=== PATIENT | male | born 1945 | race Caucasian/White ===

== ENCOUNTER 2017-11-17 12:24 | Inpatient (IN) | payer MEDICARE, BC ==
[~2017-11-17] VITALS: Ht 165.1 cm; Wt 61.5 kg
[2017-11-17 12:25] VITALS: BP 147/64; PULSE 82; RESP 18; TEMP 98.1; O2SAT 98
[2017-11-17 13:21] LABS: AUTOMATED NEUTROPHIL # 6.8 TH/MM3 (1.8-7.7); BASOPHIL % 0.3 % (0.0-2.0); EOSINOPHIL # 0.1 TH/MM3 (0-0.4); EOSINOPHIL % 0.9 % (0.0-4.0); HEMATOCRIT 37.2 % (39.0-51.0); HEMOGLOBIN 12.3 GM/DL (13.0-17.0); LYMPH % 25.9 % (9.0-44.0); LYMPHOCYTE # 2.7 TH/MM3 (1.0-4.8); MEAN CELL VOLUME 80.9 FL (80.0-100.0); MEAN CORPUSCULAR HEMOGLOBIN 26.8 PG (27.0-34.0); MEAN CORPUSCULAR HGB CONC 33.1 % (32.0-36.0); MEAN PLATELET VOLUME 8.6 FL (7.0-11.0); MONO % 7.3 % (0.0-8.0); MONOCYTE # 0.8 TH/MM3 (0-0.9); NEUT % 65.6 % (16.0-70.0); PLATELET COUNT 196 TH/MM3 (150-450); RED BLOOD COUNT 4.59 MIL/MM3 (4.50-5.90); RED CELL DISTRIBUTION WIDTH 15.4 % (11.6-17.2); WHITE BLOOD COUNT 10.4 TH/MM3 (4.0-11.0)
[2017-11-17 13:22] LABS: ALBUMIN 3.6 GM/DL (3.4-5.0); ALT (GPT) 27 U/L (12-78); AST (GOT) 16 U/L (15-37); BICARBONATE 23.8 MEQ/L (21.0-32.0); BLOOD UREA NITROGEN 13 MG/DL (7-18); C-REACTIVE PROTEIN 1.14 MG/DL (0.00-0.30); CHLORIDE 108 MEQ/L (98-107); CREATININE 0.79 MG/DL (0.60-1.30); GLOMERULAR FILTRATION RATE 96 ML/MIN (>89); GLUCOSE,RANDOM 111 MG/DL (74-106); SODIUM (NA) 140 MEQ/L (136-145)
[2017-11-17 13:23] LABS: ALKALINE PHOSPHATASE 86 U/L (45-117); LACTIC ACID SEPSIS PROTOCOL 2.3 mmol/L (0.4-2.0); TOTAL BILIRUBIN ADULT 0.3 MG/DL (0.2-1.0); TOTAL PROTEIN 7.5 GM/DL (6.4-8.2)
[2017-11-17 13:28] LABS: PROTHROMBIN TIME - PATIENT 9.8 SEC (9.8-11.6)
--- NOTE | 2017-11-17 13:32 | RADRPT ---
EXAM DATE/TIME: 11/17/2017 13:06 [place] COMPARISON: No previous studies available for comparison. INDICATIONS : Infected 2nd digit, with drainage and swelling x 2 weeks. MEDICAL HISTORY : None. SURGICAL HISTORY : None. ENCOUNTER: Initial ACUITY: 2 weeks PAIN SCORE: 9/10 LOCATION: Left hand. FINDINGS: AP, lateral and oblique views of the left hand were obtained and demonstrate flexion deformity at the level of the second proximal interphalangeal joint. Generative change no joint space loss, sclerosis and hypertrophic change. There is fusion of the second distal and middle phalanges. There is overlyi ng soft tissue swelling with no destructive change or periosteal new bone formation. There are severa l small subtle appearing calcifications in the soft tissues. CONCLUSION: 1. Soft tissue swelling over the second digit with no destructive change. There are several minute ca lcifications in the soft tissues. 2. Significant degenerative change in the second proximal interphalangeal joint with apparent flexion deformity. 3. Status post fusion of the second distal and middle phalanges. Cheng Enrique MD on November 17, 2017 at 13:25 Board Certified Radiologist. This report was verified electronically.
[2017-11-17] MEDS ORDERED: METF500T4 PO (14:10)
[2017-11-17] MEDS ORDERED: ONDANSETRON HCL 4 MG/2 ML VIAL IV PUSH ONE (14:45)
[2017-11-17] MEDS ORDERED: MORPHINE SULFATE 2 MG/ML INJ IV PUSH ONE (14:45)
[2017-11-17] MEDS ORDERED: PIPERACIL-TAZO 3.375 GM PREMIX 50 ML IV ONE (14:45)
[2017-11-17 15:19] VITALS: BP 184/80; PULSE 71; RESP 18; O2SAT 100
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
[2017-11-17] MEDS ORDERED: SODIUM CHLOR 0.9% 1000 ML INJ 1,000 ML IV ONE (15:30)
[2017-11-17] MEDS ORDERED: PROS5TAB PO (15:41)
[2017-11-17] MEDS ORDERED: ZOCO20TA PO (15:41)
[2017-11-17] MEDS ORDERED: TAMS0.4C4 PO (15:41)
[2017-11-17] MEDS ORDERED: [UNRECOGNIZED DRUG - CODE] PO (15:41)
[2017-11-17] MEDS ORDERED: PANT40TA3 PO (15:41)
[2017-11-17] MEDS ORDERED: ONE-TAB4 PO (15:41)
[2017-11-17] MEDS ORDERED: ACET650T67 PO (15:41)
[2017-11-17] MEDS ORDERED: ARIC10TA9 PO (15:41)
[2017-11-17] MEDS ORDERED: OXYB5TAB8 PO (15:41)
[2017-11-17] MEDS ORDERED: ASPI81TA16 PO (15:41)
[2017-11-17] MEDS ORDERED: CALCTAB94 PO (15:41)
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
[2017-11-17] MEDS ORDERED: ONDANSETRON HCL 4 MG/2 ML VIAL IVP PRN (16:15)
[2017-11-17] MEDS ORDERED: BISACODYL 10 MG SUPP RECTAL PRN (16:15)
[2017-11-17] MEDS ORDERED: SENNOSIDES 8.6 MG TAB PO PRN (16:15)
[2017-11-17] MEDS ORDERED: MAGNESIUM HYDROXIDE SUSP 30 ML CUP PO PRN (16:15)
[2017-11-17] MEDS ORDERED: NALOXONE HCL 0.4 MG/ML AMP IV PUSH PRN ×3 (16:15→23:30)
[2017-11-17] MEDS ORDERED: SODIUM CHLORIDE 0.9% FLUSH 10 ML FLUSH IV FLUSH PRN (16:15)
[2017-11-17 16:18] VITALS: BP 170/67; PULSE 66; RESP 16; O2SAT 100
[2017-11-17] MEDS ORDERED: GLUCAGON 1 MG/ML VIAL OTHER PRN (16:30)
[2017-11-17] MEDS ORDERED: DEXTROSE 50% IN WATER 50 ML VIAL(D50) IV PUSH PRN (16:30)
[2017-11-17] MEDS: ENOXAPARIN SODIUM 40 MG/0.4 ML SYRINGE SQ SCH (17:00)
[2017-11-17] MEDS ORDERED: CHLORHEXIDINE GLUCONATE 2 % 1 PACK (2 CLOTHS) TOPICAL PRN (17:30)
[2017-11-17] MEDS ORDERED: SODIUM CHLORID 0.9% 500 ML IV PRN (17:30)
[2017-11-17] MEDS ORDERED: POVIDONE IODINE 5% (ANTISEPSIS KIT) 4 APPLICATIONS EACH NARE PRN (17:30)
[2017-11-17] MEDS ORDERED: METOPROLOL TARTRATE 25 MG TAB PO PRN (17:30)
[2017-11-17] MEDS ORDERED: LACTATED RINGER'S 1000 ML IV PRN (17:30)
[2017-11-17] MEDS ORDERED: INSULIN HUMAN REGULAR 1,000 UNITS/10 ML VIAL SQ PRN (17:30)
[2017-11-17] MEDS: IBUPROFEN 600 MG TAB PO SCH (18:00)
[2017-11-17] MEDS ORDERED: fentaNYL CITRATE 250 MCG/5 ML AMP ONE (18:08)
[2017-11-17] MEDS ORDERED: ceFAZolin INJ 1,000 MG VIAL IV ONE (18:43)
[2017-11-17] MEDS ORDERED: *morphine SULFATE 10 MG/ML PERIprocedure ONLY ONE (19:50)
--- NOTE | 2017-11-17 20:01 | PD.OP ---
Operative Report Preoperative Diagnosis: (1) infection left index finger Postoperative Diagnosis: (1) septic arthritis with osteomyelitis PIP joint left index finger Procedure: incision and drainage, arthrotomy and wash PIP Joint left index finger Anesthesia: general Surgeon: Sage Koenig Sisal Operator(s): tosha Operation and Findings: septic arthritis PIP Joint left index finger ?osteomyelitis proximal phalanx head left index finger Sage Koenig MD Nov 17, 2017 20:00
[2017-11-17] MEDS: INSULIN ASPART SUPPLEMENTAL SCALE SQ SCH (20:27)
[2017-11-17] MEDS ORDERED: DO NOT ADM ANY ANTICOAGULANT DRUGS PRN (21:00)
[2017-11-17] MEDS ORDERED: NON-FORMULARY DRUG (Simvastatin (Zocor) 20 MG) PO SCH (21:00)
[2017-11-17 21:14] VITALS: BP 153/70; PULSE 71; RESP 18; TEMP 97.7; O2SAT 100
[2017-11-17] MEDS: VANCOMYCIN INJ 950 MG in SODIUM CHLOR 0.9% 250 ML INJ 250 ML IV SCH (23:38)
[2017-11-17] MEDS: PIPERACIL-TAZO 4.5 GM PREMIX 100 ML IV SCH (23:38)
[2017-11-17] MEDS: PRAVASTATIN SOD 40 MG TAB PO SCH (23:45)
[2017-11-17] MEDS: DOCUSATE SODIUM 50 MG/SENNA 8.6 MG TAB PO SCH (23:46)
[2017-11-17] MEDS: oxyCODONE/ACETAMINOPHEN 10 MG/325 MG TAB PO PRN (23:46)
[2017-11-17] MEDS: SODIUM CHLORIDE 0.9% FLUSH 10 ML FLUSH IV FLUSH SCH (23:46)
[2017-11-17] MEDS: FINASTERIDE 5 MG TAB PO SCH (23:46)
[2017-11-18] MEDS ORDERED: ENALAPRILAT 1.25 MG/ML VIAL IV PUSH PRN
[2017-11-18] MEDS: IBUPROFEN 600 MG TAB PO SCH ×4 (00:28→18:15)
[2017-11-18 00:37] VITALS: BP 126/83; PULSE 70; RESP 18; TEMP 98.2; O2SAT 98
[2017-11-18] MEDS: oxyCODONE/ACETAMINOPHEN 10 MG/325 MG TAB PO PRN ×2 (04:51→21:40)
[2017-11-18] MEDS: PIPERACIL-TAZO 4.5 GM PREMIX 100 ML IV SCH (05:03)
[2017-11-18 05:35] VITALS: BP 125/59; PULSE 58; RESP 18; TEMP 98.4; O2SAT 98
[2017-11-18] MEDS: INSULIN ASPART SUPPLEMENTAL SCALE SQ SCH ×4 (07:54→21:00)
[2017-11-18 08:09] VITALS: BP 152/70; PULSE 67; RESP 20; TEMP 98.4; O2SAT 99
[2017-11-18] MEDS ORDERED: NON-FORMULARY DRUG (Donepezil HCl (Aricept) 10 MG) PO SCH (09:00)
[2017-11-18] MEDS: DOCUSATE SODIUM 50 MG/SENNA 8.6 MG TAB PO SCH ×2 (09:00→21:40)
[2017-11-18] MEDS ORDERED: CALCIUM CARBONATE 600 MG PO SCH (09:00)
[2017-11-18] MEDS ORDERED: PUMPKIN SEED OIL PO SCH (09:00)
[2017-11-18] MEDS ORDERED: SAW PALMETTO PO SCH (09:00)
[2017-11-18] MEDS ORDERED: MULTIPLE VITAMIN PO SCH (09:00)
[2017-11-18 09:11] LABS: AUTOMATED NEUTROPHIL # 4.7 TH/MM3 (1.8-7.7); BASOPHIL # 0.1 TH/MM3 (0-0.2); BASOPHIL % 0.6 % (0.0-2.0); EOSINOPHIL # 0.1 TH/MM3 (0-0.4); EOSINOPHIL % 1.8 % (0.0-4.0); HEMATOCRIT 32.8 % (39.0-51.0); HEMOGLOBIN 10.7 GM/DL (13.0-17.0); LYMPH % 29.4 % (9.0-44.0); LYMPHOCYTE # 2.3 TH/MM3 (1.0-4.8); MEAN CELL VOLUME 81.4 FL (80.0-100.0); MEAN CORPUSCULAR HEMOGLOBIN 26.5 PG (27.0-34.0); MEAN CORPUSCULAR HGB CONC 32.6 % (32.0-36.0); MEAN PLATELET VOLUME 9.1 FL (7.0-11.0); MONO % 7.8 % (0.0-8.0); MONOCYTE # 0.6 TH/MM3 (0-0.9); NEUT % 60.4 % (16.0-70.0); PLATELET COUNT 178 TH/MM3 (150-450); RED BLOOD COUNT 4.02 MIL/MM3 (4.50-5.90); RED CELL DISTRIBUTION WIDTH 15.7 % (11.6-17.2); WHITE BLOOD COUNT 7.8 TH/MM3 (4.0-11.0)
[2017-11-18 09:33] LABS: BICARBONATE 27.2 MEQ/L (21.0-32.0); CALCIUM 8.3 MG/DL (8.5-10.1); CREATININE 0.85 MG/DL (0.60-1.30)
[2017-11-18] MEDS: OXYBUTYNIN CHLORIDE 5 MG TAB PO SCH (10:15)
[2017-11-18] MEDS: PANTOPRAZOLE SOD 40 MG DELAYED RELEASE TAB PO SCH (10:15)
[2017-11-18] MEDS: CALCIUM CARBONATE 1.25 GM (CA 500 MG) TAB PO SCH (10:16)
[2017-11-18] MEDS: MULTIVITAMIN TAB PO SCH (10:17)
[2017-11-18] MEDS: DONEPEZIL HCL 5 MG TAB PO SCH (10:17)
[2017-11-18] MEDS: TAMSULOSIN HCL 0.4 MG CAP PO SCH (10:17)
[2017-11-18] MEDS: VANCOMYCIN INJ 950 MG in SODIUM CHLOR 0.9% 250 ML INJ 250 ML IV SCH ×2 (10:19→21:39)
[2017-11-18] MEDS: SODIUM CHLORIDE 0.9% FLUSH 10 ML FLUSH IV FLUSH SCH ×2 (10:19→21:41)
[2017-11-18 11:44] VITALS: BP 140/88; PULSE 68; RESP 20; TEMP 98.2; O2SAT 98
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
--- NOTE | 2017-11-18 14:15 | EKG ---
Date Performed: 11/17/2017 Time Performed: 16:39:09 PTAGE: 72 years EKG: Sinus rhythm WITH SINUS ARRHYTHMIA POSSIBLE RIGHT VENTRICULAR CONDUCTION DELAY BORDERLINE ECG NO PREVIOUS TRACING DOCTOR: Anurag Domingo Interpretating Date/Time 11/18/2017 14:14:19
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
[2017-11-18 16:06] VITALS: BP 150/71; PULSE 74; RESP 20; TEMP 98.4; O2SAT 98
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
[2017-11-18] MEDS: ENOXAPARIN SODIUM 40 MG/0.4 ML SYRINGE SQ SCH (18:15)
[2017-11-18] MEDS: LACTULOSE SYRUP 20 GM/30 ML CUP PO PRN (18:23)
--- NOTE | 2017-11-18 18:36 | HHI.PR ---
Subjective Remarks complains of pain over left index finger complaint with elevation no fever Objective Vital Signs Date Time Temp Pulse Resp B/P (MAP) Pulse Ox O2 Delivery O2 Flow Rate FiO2 11/18/17 16:06 98.4 74 20 150/71 (97) 98 11/18/17 11:44 98.2 68 20 140/88 (105) 98 11/18/17 08:09 98.4 67 20 152/70 (97) 99 11/18/17 05:35 98.4 58 18 125/59 (81) 98 11/18/17 00:37 98.2 70 18 126/83 (97) 98 11/17/17 21:14 97.7 71 18 153/70 (97) 100 11/17/17 20:45 98.0 63 12 164/74 (104) 100 Room Air 11/17/17 20:30 66 16 167/74 (105) 100 Room Air 11/17/17 20:15 65 12 177/76 (109) 100 Nasal Cannula 2 11/17/17 20:00 65 13 166/70 (102) 100 Nasal Cannula 2 11/17/17 19:45 64 12 169/73 (105) 100 Nasal Cannula 2 11/17/17 19:30 70 12 161/72 (101) 100 Nasal Cannula 2 11/17/17 19:19 98.0 76 10 182/74 (110) 100 Nasal Cannula 2 I/O 11/17/17 11/17/17 11/17/17 11/18/17 11/18/17 11/18/17 06:59 14:59 22:59 06:59 14:59 22:59 Intake Total 600 ml 720 ml Output Total 625 ml Balance -25 ml 720 ml Intake Oral 720 ml IV Total 600 ml Output Urine Total 600 ml Estimated Blood Loss 25 ml # Voids 1 4 examination of the left index finger: packing in place minimal drainage swelling and redness noted over the PIP joint region range of motion of the PIP joint is limited and painful gram stain: MRSA Result Diagram: 11/18/1728 11/18/1728 Assessment and Plan Assessment and Plan 72 year old male s/p arthrotomy PIP joint left index finger POD 1 Plan: obtain ID consultation for IV antibiotics packing changed and new dressing applied advised regarding range of motion hand surgery will follow. Sage Koenig MD Nov 18, 2017 18:36
[2017-11-18 20:27] VITALS: BP 154/71; PULSE 67; RESP 18; TEMP 98.6; O2SAT 98
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
[2017-11-18] MEDS: FINASTERIDE 5 MG TAB PO SCH (21:41)
[2017-11-18] MEDS: PRAVASTATIN SOD 40 MG TAB PO SCH (21:41)
[2017-11-19 01:12] VITALS: BP 179/84; PULSE 79; RESP 19; TEMP 97.5; O2SAT 97
[2017-11-19] MEDS: IBUPROFEN 600 MG TAB PO SCH ×4 (01:39→17:06)
[2017-11-19] MEDS: oxyCODONE/ACETAMINOPHEN 5 MG/325 MG TAB PO PRN ×2 (01:39→22:26)
[2017-11-19 04:29] VITALS: BP 147/65; PULSE 62; RESP 18; TEMP 97.7; O2SAT 99
[2017-11-19] MEDS: oxyCODONE/ACETAMINOPHEN 10 MG/325 MG TAB PO PRN (06:12)
[2017-11-19] MEDS: INSULIN ASPART SUPPLEMENTAL SCALE SQ SCH ×4 (08:00→21:00)
[2017-11-19] MEDS: DONEPEZIL HCL 5 MG TAB PO SCH (09:56)
[2017-11-19] MEDS: DOCUSATE SODIUM 50 MG/SENNA 8.6 MG TAB PO SCH ×2 (09:56→22:26)
[2017-11-19] MEDS: OXYBUTYNIN CHLORIDE 5 MG TAB PO SCH (09:56)
[2017-11-19] MEDS: TAMSULOSIN HCL 0.4 MG CAP PO SCH (09:56)
[2017-11-19] MEDS: LACTULOSE SYRUP 20 GM/30 ML CUP PO PRN (09:56)
[2017-11-19] MEDS: MULTIVITAMIN TAB PO SCH (09:57)
[2017-11-19] MEDS: CALCIUM CARBONATE 1.25 GM (CA 500 MG) TAB PO SCH (09:57)
[2017-11-19] MEDS: PANTOPRAZOLE SOD 40 MG DELAYED RELEASE TAB PO SCH (09:57)
[2017-11-19] MEDS: SODIUM CHLORIDE 0.9% FLUSH 10 ML FLUSH IV FLUSH SCH ×2 (09:57→22:27)
[2017-11-19] MEDS: VANCOMYCIN INJ 950 MG in SODIUM CHLOR 0.9% 250 ML INJ 250 ML IV SCH (09:57)
--- NOTE | 2017-11-19 11:42 | HHI.FF ---
Infusion Therapy Location of Infusion Therapy: Home [facility] IV Infusion Order Patient Information Patient Weight 61.3 kg Diagnosis: Coded Allergies: No Known Allergies (Verified Allergy, Unknown, 11/17/17) Administer Medication Vancomycin 1 gram IV q 12 hours Start Treatment: Nov 19, 2017 Stop Treatment: Dec 15, 2017 Additional Information Venous access: PICC Line Additional Instructions [x] Peripheral flush and dressing changes per protocol [x] Implanted port and central online trader: * Implanted port: 10 ml Normal Saline followed by 5 ml Heparin 100 units/ml Heparin flush after each use and monthly to maintain. [] May leave port accessed during therapy. [] May leave peripheral site accessed for duration of therapy. [x] If patient has SOB or respiratory distress, check oxygen saturation. If less than 90% or clinical signs of respiratory distress, administer oxygen at 2 L/min. via nasal cannula and notify physician. [x] Anaphylaxis/Reaction orders: * Stop infusion. * Keep IV line open with saline flush. * Notify physician. * Monitor vital signs every 15 minutes until symptoms resolve. * Check Oxygen saturation; Oxygen at 2 L/min. via nasal cannula if less than 90% or clinical signs of respiratory distress. * Administer diphenhydramine (Benadryl) 25 mg IV STAT, (unless patient has received as pre-med). May repeat once, if necessary. * Solu-Cortef 250 mg IVP over 30-60 seconds, use 100 mg vials for each dissolution. * Epinephrine (1mg/1 ml) 0.3 mg subcutaneously or IVP now with any signs of respiratory distress. * Check with physician for new additional pre-med orders if patient is re- challenged or re-treated. [x] May remove PICC line when treatment complete, after confirming with Physician. [x] If the patient is admitted to the hospital, the ED, or transferred via [facility] , complete transfer form including medication reconciliation order sheet. Laboratory Tests Weekly Labs: CBC w/diff, Creatinine, SED Rate, Vancomycin Trough Lynne Domingo MD Nov 19, 2017 11:42
[2017-11-19 12:00] VITALS: BP 160/77; PULSE 81; RESP 18; TEMP 97.7; O2SAT 100
[2017-11-19] MEDS ORDERED: SOLU250I IV PUSH (12:09)
[2017-11-19] MEDS ORDERED: EPIN1INJ21 SQ (12:09)
[2017-11-19] MEDS ORDERED: VANC1000P IV (12:09)
[2017-11-19] MEDS ORDERED: EPIN1INJ21 IV PUSH (12:09)
--- NOTE | 2017-11-19 13:08 | RADRPT ---
EXAM DATE/TIME: 11/19/2017 12:49 [facility] COMPARISON: No previous studies available for comparison. INDICATIONS : PICC line placement right side. MEDICAL HISTORY : None. SURGICAL HISTORY : None. ENCOUNTER: Initial ACUITY: 1 day PAIN SCORE: 0/10 LOCATION: Right upper chest FINDINGS: Single AP view of the chest. Right-sided PICC line in place with the tip at the cavoatrial junction. The lungs are clear. Cardiomediastinal silhouette within normal limits. No evidence of pleural effusi on or pneumothorax. CONCLUSION: Right-sided PICC line in place with the tip at the cavoatrial junction. No acute c ardiopulmonary disease identified. Barrett Johnson MD on November 19, 2017 at 13:05 Board Certified Radiologist. This report was verified electronically.
[2017-11-19] MEDS ORDERED: MAGNESIUM HYDROXIDE SUSP 30 ML CUP PO PRN (14:00)
[2017-11-19] MEDS ORDERED: SODIUM CHLORIDE 0.9% FLUSH 10 ML FLUSH IV FLUSH PRN (14:00)
[2017-11-19] MEDS ORDERED: BISACODYL 10 MG SUPP RECTAL ONE (14:00)
--- NOTE | 2017-11-19 14:00 | HHI.FPPN ---
Subjective Remarks Patient seen and examined bedside. Patient is postop day #2 from an I&D of the left index finger infection. Pain well-controlled on his current medications. Patient did see his hand surgeon this morning, who indicated that he would be in the hospital for 1 more day at least. Patient states that he has been constipated over the last few days. He denies any nausea/vomiting. He denies any fever/chills. Denies any chest pain/shortness of breath/dizziness. (Edna Landeros MD R2) Objective Vitals Vital Signs Date Time Temp Pulse Resp B/P (MAP) Pulse Ox O2 Delivery O2 Flow Rate FiO2 11/19/17 12:00 97.7 81 18 160/77 (104) 100 11/19/17 04:29 97.7 62 18 147/65 (92) 99 11/19/17 01:12 97.5 79 19 179/84 (115) 97 11/18/17 20:27 98.6 67 18 154/71 (98) 98 11/18/17 16:06 98.4 74 20 150/71 (97) 98 I/O 11/18/17 11/18/17 11/18/17 11/19/17 11/19/17 11/19/17 07:00 15:00 23:00 07:00 15:00 23:00 Intake Total 200 ml 970 ml 502 ml Balance 200 ml 970 ml 502 ml Intake Oral 720 ml IV Total 200 ml 250 ml 502 ml # Voids 4 (Edna Landeros MD R2) Result Diagram: 11/18/17 0828 11/18/17 0828 Objective Remarks Physical Exam GENERAL: This is a well-nourished, well-developed patient, in no apparent distress. non-toxic appearing. SKIN: No rashes, ecchymoses or lesions. Cool and dry. HEAD: Atraumatic. Normocephalic. No temporal or scalp tenderness. EYES: pinpoint pupils equal round and reactive. Extraocular motions intact. No scleral icterus. No injection or drainage. ENT: Nose without bleeding, purulent drainage or septal hematoma. Throat without erythema, tonsillar hypertrophy or exudate. Uvula midline. Airway patent. NECK: Trachea midline. No JVD or lymphadenopathy. Supple, nontender, no meningeal signs. CARDIOVASCULAR: Normal S1 and S2. Regular rate and rhythm without murmurs, gallops, or rubs. RESPIRATORY: Clear to auscultation. Breath sounds equal bilaterally. No wheezes , rales, or rhonchi. GASTROINTESTINAL: Abdomen soft, nondistended, non-tender, No hepato-splenomegaly , or palpable masses. No guarding. MUSCULOSKELETAL: Extremities without clubbing, or cyanosis. Left hand wrapped in bandage. neurovascularly intact. Patient has sensation in his second digit, however cannot actively move the second digit per instruction of the hand surgeon. No loss of sensation or motion of all other digits. No calf tenderness. NEUROLOGICAL: Awake and alert. Cranial nerves II through XII intact. Motor and sensory grossly within normal limits. Five out of 5 muscle strength in all muscle groups. Normal speech. (Edna Landeros MD R2) A/P Assessment and Plan Patient is a 72-year-old Male with PMHx of DM who presents to the ED with complaints of progressively worsening Left index finger infection. Patient failed outpatient treatment with doxycycline. Admitted for treatment of septic joint of Left hand. (Edna Landeros MD R2) Problem List: (1) infection left index finger Status: Acute Plan: Patient with worsening pain, localized erythema,swelling and foul odorous pus discharge of PIP joint of Left 2nd digit, neurovascularly intact. Pt afebrile, ESR WNL, elevated CRP- 1.14 and lactic acid- 2.3, repeat 1.4, no leukocytosis -Pt failed outpatient treatment with doxycycline - s/p I&D on 11/17 -Pt received zosyn 3.375mg x1 in the ED -Left hand xray showed: soft tissue swelling around 2nd digit, no destructive changes, degenerative changes in 2nd proximal interphalangeal joint with flexion deformity -Pt to continue abx treatment switch to vanc IV after surgery with PICC line per ID. -wound cx positive for MRSA, zosyn discontinued -ibuprofen 600mg Q6h for inflammation -oxycodone PRN with pain scale Hand Surgery consulted, recommendations appreciated Infectious disease consulted, recommendations appreciated (2) Diabetes ICD Codes: E11.9 - Type 2 diabetes mellitus without complications Status: Chronic Plan: -monitor bedside glucose -SSI low dose -hold home diabetic medications (3) History of abdominal hernia ICD Codes: Z87.19 - Personal history of other diseases of the digestive system Status: Chronic Plan: pt with hx of bowel perforation and abdominal surgery, recent constipation -Pt stated he had abdominal pain when he arrived to ED along scarred incision, abdominal pain has now resolved -hernia is reducible Cont Elo-Colace BID Add Milk of Mag TID Add Dulcolax Supp (4) Elevated blood pressure reading without diagnosis of hypertension ICD Codes: R03.0 - Elevated blood-pressure reading, without diagnosis of hypertension Status: Acute Plan: Pt denies hx of HTN -Pt above 140s-180s/80s, can be a response to pain -continue to monitor -consider adding PRN BP meds if HTN is sustain (5) BPH (benign prostatic hyperplasia) ICD Codes: N40.0 - Benign prostatic hyperplasia without lower urinary tract symptoms Status: Chronic Plan: -c/w home meds (6) Nutrition, metabolism, and development symptoms ICD Codes: R63.8 - Other symptoms and signs concerning food and fluid intake Plan: Fluids: no indicated at this time Electrolytes: WNL Nutrition: diabetic diet DVT ppx: lovenox 40mg (Edna Landeros MD R2) Problem List: (1) infection left index finger Status: Acute Plan: Patient with worsening pain, localized erythema,swelling and foul odorous pus discharge of PIP joint of Left 2nd digit, neurovascularly intact. Pt afebrile, ESR WNL, elevated CRP- 1.14 and lactic acid- 2.3, repeat 1.4, no leukocytosis -Pt failed outpatient treatment with doxycycline - s/p I&D on 11/17 -Pt received zosyn 3.375mg x1 in the ED -Left hand xray showed: soft tissue swelling around 2nd digit, no destructive changes, degenerative changes in 2nd proximal interphalangeal joint with flexion deformity -Pt to continue abx treatment switch to vanc IV after surgery with PICC line per ID. -wound cx positive for MRSA, zosyn discontinued -ibuprofen 600mg Q6h for inflammation -oxycodone PRN with pain scale Hand Surgery consulted, recommendations appreciated Infectious disease consulted, recommendations appreciated (2) Diabetes ICD Codes: E11.9 - Type 2 diabetes mellitus without complications Status: Chronic Plan: -monitor bedside glucose -SSI low dose -hold home diabetic medications (3) History of abdominal hernia ICD Codes: Z87.19 - Personal history of other diseases of the digestive system Status: Chronic Plan: pt with hx of bowel perforation and abdominal surgery, recent constipation -Pt stated he had abdominal pain when he arrived to ED along scarred incision, abdominal pain has now resolved -hernia is reducible Cont Elo-Colace BID Add Milk of Mag TID Add Dulcolax Supp (4) Elevated blood pressure reading without diagnosis of hypertension ICD Codes: R03.0 - Elevated blood-pressure reading, without diagnosis of hypertension Status: Acute Plan: Pt denies hx of HTN -Pt above 140s-180s/80s, can be a response to pain -continue to monitor -consider adding PRN BP meds if HTN is sustain (5) BPH (benign prostatic hyperplasia) ICD Codes: N40.0 - Benign prostatic hyperplasia without lower urinary tract symptoms Status: Chronic Plan: -c/w home meds (6) Nutrition, metabolism, and development symptoms ICD Codes: R63.8 - Other symptoms and signs concerning food and fluid intake Plan: Fluids: no indicated at this time Electrolytes: WNL Nutrition: diabetic diet DVT ppx: lovenox 40mg See the residents documentation for details. I saw and evaluated the patient regarding the jovel portions of this evaluation and agree with the residents findings and plans as written. Parts of this note were created using [employer] voice recognition software program. While efforts were made to correct any mistakes made by this software, some mistakes, errors, and omissions may remain in the final note that were not caught when the note was originally created. Plan of care was discussed and agreed upon with the patient as specifically documented in the above note. An opportunity to ask questions with explanation was provided. Patient voiced understanding on all information reviewed and discussed. (William Tavares MD) Problem Qualifiers (1) Diabetes: Edna Landeros MD R2 Nov 19, 2017 14:00 William Tavares MD Nov 20, 2017 10:51
--- NOTE | 2017-11-19 14:06 | HHI.FF ---
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 My clinical findings support the need for the requested home health care services because: Ltd mobility - disease progression I certify that my clinical findings support that this patient is homebound because: Post-op weakness Edna Landeros MD R2 Nov 19, 2017 14:06
[2017-11-19] MEDS ORDERED: Vancomycin Consult Pharmacy 1 EA OTHER SCH (14:15)
[2017-11-19 16:00] VITALS: BP 135/60; PULSE 72; RESP 18; TEMP 98.4; O2SAT 98
[2017-11-19] MEDS: ENOXAPARIN SODIUM 40 MG/0.4 ML SYRINGE SQ SCH (17:06)
[2017-11-19] MEDS: FINASTERIDE 5 MG TAB PO SCH (22:26)
[2017-11-19] MEDS: PRAVASTATIN SOD 40 MG TAB PO SCH (22:26)
[2017-11-19 22:45] VITALS: BP 133/60; PULSE 79; RESP 19; TEMP 98.1; O2SAT 97
[2017-11-20] MEDS: IBUPROFEN 600 MG TAB PO SCH ×3 (00:14→12:50)
[2017-11-20 00:50] VITALS: BP 129/62; PULSE 75; RESP 19; TEMP 97.6
[2017-11-20] MEDS: INSULIN ASPART SUPPLEMENTAL SCALE SQ SCH ×2 (07:58→12:50)
[2017-11-20 08:00] VITALS: BP 131/58; PULSE 73; RESP 18; TEMP 98.1; O2SAT 99
[2017-11-20] MEDS: CALCIUM CARBONATE 1.25 GM (CA 500 MG) TAB PO SCH (08:52)
[2017-11-20] MEDS: OXYBUTYNIN CHLORIDE 5 MG TAB PO SCH (08:52)
[2017-11-20] MEDS: MULTIVITAMIN TAB PO SCH (08:52)
[2017-11-20] MEDS: DOCUSATE SODIUM 50 MG/SENNA 8.6 MG TAB PO SCH (08:52)
[2017-11-20] MEDS: PANTOPRAZOLE SOD 40 MG DELAYED RELEASE TAB PO SCH (08:52)
[2017-11-20] MEDS: DONEPEZIL HCL 5 MG TAB PO SCH (08:53)
[2017-11-20] MEDS: SODIUM CHLORIDE 0.9% FLUSH 10 ML FLUSH IV FLUSH SCH (08:54)
[2017-11-20] MEDS ORDERED: SODIUM CHLORIDE 0.9% FLUSH 10 ML FLUSH IV FLUSH SCH (09:00)
[2017-11-20] MEDS: TAMSULOSIN HCL 0.4 MG CAP PO SCH (09:01)
[2017-11-20] MEDS ORDERED: VANCOMYCIN INJ 1,250 MG in SODIUM CHLOR 0.9% 250 ML INJ 250 ML IV SCH (10:00)
--- NOTE | 2017-11-20 10:35 | HHI.FPPN ---
Subjective Remarks Patient seen and examined at bedside. No acute events overnight. Pt Denies CP, fevers, SOB. Pt reports pain is well controlled. Pt with good urine output and BM. Objective Vitals Vital Signs Date Time Temp Pulse Resp B/P (MAP) Pulse Ox O2 Delivery O2 Flow Rate FiO2 11/20/17 08:00 98.1 73 18 131/58 (82) 99 11/20/17 01:28 18 11/20/17 00:50 97.6 75 19 129/62 (84) 11/19/17 23:26 18 11/19/17 22:45 98.1 79 19 133/60 (84) 97 11/19/17 16:00 98.4 72 18 135/60 (85) 98 11/19/17 12:00 97.7 81 18 160/77 (104) 100 I/O 11/19/17 11/19/17 11/19/17 11/20/17 11/20/17 11/20/17 07:00 15:00 23:00 07:00 15:00 23:00 Intake Total 502 ml 900 ml 700 ml Balance 502 ml 900 ml 700 ml Intake Oral 900 ml 700 ml IV Total 502 ml # Voids 3 3 # Bowel Movements 2 0 0 Result Diagram: 11/18/1782711/18/17827 Objective Remarks Physical Exam GENERAL: This is a well-nourished, well-developed patient, in no apparent distress. non-toxic appearing. SKIN: No rashes, ecchymoses or lesions. Cool and dry. HEAD: Atraumatic. Normocephalic. No temporal or scalp tenderness. EYES: pupils equal round and reactive. Extraocular motions intact. No scleral icterus. No injection or drainage. ENT: Nose without bleeding, purulent drainage or septal hematoma. Throat without erythema, tonsillar hypertrophy or exudate. Uvula midline. Airway patent. NECK: Trachea midline. No JVD or lymphadenopathy. Supple, nontender, no meningeal signs. CARDIOVASCULAR: Normal S1 and S2. Regular rate and rhythm without murmurs, gallops, or rubs. RESPIRATORY: Clear to auscultation. Breath sounds equal bilaterally. No wheezes , rales, or rhonchi. GASTROINTESTINAL: Abdomen soft, nondistended, non-tender, No hepato-splenomegaly , or palpable masses. No guarding. MUSCULOSKELETAL: Extremities without clubbing, or cyanosis. Left hand wrapped in bandage. neurovascularly intact. Patient has sensation in his second digit. No loss of sensation or motion of all other digits. No calf tenderness. NEUROLOGICAL: Awake and alert. Cranial nerves II through XII intact. Motor and sensory grossly within normal limits. Five out of 5 muscle strength in all muscle groups. Normal speech. A/P Assessment and Plan Patient is a 72-year-old Male with PMHx of DM who presents to the ED with complaints of progressively worsening Left index finger infection. Patient failed outpatient treatment with doxycycline. Admitted for treatment of septic joint of Left hand. Problem List: (1) infection left index finger Status: Acute Plan: On admission: Patient with worsening pain, localized erythema,swelling and foul odorous pus discharge of PIP joint of Left 2nd digit, neurovascularly intact. -Pt failed outpatient treatment with doxycycline - s/p I&D on 11/17 -Pt received zosyn 3.375mg x1 in the ED -Left hand xray showed: soft tissue swelling around 2nd digit, no destructive changes, degenerative changes in 2nd proximal interphalangeal joint with flexion deformity -Pt to continue abx treatment switch to vanc IV after surgery with PICC line per ID. -wound cx positive for MRSA, zosyn discontinued -ibuprofen 600mg Q6h for inflammation -oxycodone PRN with pain scale Hand Surgery consulted, recommendations appreciated -Pt cleared from hand surgery standpoint once all outpatient IV abx preparations are in place Infectious disease consulted, recommendations appreciated -PICC placement done yesterday -will touch base with case management to assure outpatient arrangement have been made (2) Diabetes ICD Codes: E11.9 - Type 2 diabetes mellitus without complications Status: Chronic Plan: -monitor bedside glucose -SSI low dose -hold home diabetic medications (3) History of abdominal hernia ICD Codes: Z87.19 - Personal history of other diseases of the digestive system Status: Chronic Plan: pt with hx of bowel perforation and abdominal surgery, recent constipation -Pt stated he had abdominal pain when he arrived to ED along scarred incision, abdominal pain has now resolved -hernia is reducible Cont Elo-Colace BID Add Milk of Mag TID Add Dulcolax Supp (4) Elevated blood pressure reading without diagnosis of hypertension ICD Codes: R03.0 - Elevated blood-pressure reading, without diagnosis of hypertension Status: Acute Plan: Pt denies hx of HTN -Pt BP range 130s-160/60-70s -continue to monitor -consider adding PRN BP meds if HTN is sustain (5) BPH (benign prostatic hyperplasia) ICD Codes: N40.0 - Benign prostatic hyperplasia without lower urinary tract symptoms Status: Chronic Plan: -c/w home meds (6) Nutrition, metabolism, and development symptoms ICD Codes: R63.8 - Other symptoms and signs concerning food and fluid intake Plan: Fluids: no indicated at this time Electrolytes: WNL Nutrition: diabetic diet DVT ppx: lovenox 40mg Problem Qualifiers (1) Diabetes: Gabriel Bojorquez MD, R1 Nov 20, 2017 10:35
--- NOTE | 2017-11-20 11:49 | HHI.PR ---
Subjective Remarks complains of pain over left index finger complaint with elevation and range of motion exercises no fever Objective Vital Signs Date Time Temp Pulse Resp B/P (MAP) Pulse Ox O2 Delivery O2 Flow Rate FiO2 11/20/17 08:00 98.1 73 18 131/58 (82) 99 11/20/17 01:28 18 11/20/17 00:50 97.6 75 19 129/62 (84) 11/19/17 23:26 18 11/19/17 22:45 98.1 79 19 133/60 (84) 97 11/19/17 16:00 98.4 72 18 135/60 (85) 98 11/19/17 12:00 97.7 81 18 160/77 (104) 100 I/O 11/19/17 11/19/17 11/19/17 11/20/17 11/20/17 11/20/17 07:00 15:00 23:00 07:00 15:00 23:00 Intake Total 502 ml 900 ml 700 ml Balance 502 ml 900 ml 700 ml Intake Oral 900 ml 700 ml IV Total 502 ml # Voids 3 3 # Bowel Movements 2 0 0 index finger: dressing in place packing in place swelling and redness noted minimal drainage limited range of motion Cultures: MRSA Result Diagram: 11/18/17 0811/18/17827 Assessment and Plan Assessment and Plan 72 year old male s/p arthrotomy PIP joint left index finger POD 3 Plan: packing removed, new dressing applied advised regarding range of motion antibiotics based on ID recommendations wound care: clean the surrounding skin with alcohol wipes, wound with normal saline, 2 X 2 and cling cleared from hand surgery after outpatient IV antibiotics has been arranged. follow up in office in one week time. Sage Koenig MD Nov 20, 2017 11:49
[2017-11-20 12:00] VITALS: BP 129/59; PULSE 79; RESP 18; TEMP 97.8; O2SAT 100
[2017-11-20] MEDS ORDERED: OXYC1TAB63 PO (14:07)
[2017-11-20] MEDS ORDERED: IBUP-232 PO (14:07)
[2017-11-20] MEDS ORDERED: PRAV40TA2 PO (14:35)
[2017-11-21] MEDS ORDERED: PHARMACY ORDERED LAB ONE (09:45)
== END 2017-11-20 16:06 | disposition home or self-care (01) | DRG 514 ==
LOC: NEPE 12:24 → NEDA 15:24 → N05A 21:02
PROVIDERS: ADMIT Family Medicine; ATTEND Family Medicine
PROC: 3E1U38Z Irrigation of Joints using Irrigating Substance, Percutaneous Approach (ICD-10-PCS; 2017-11-17)
PROC: 0RBX0ZZ Excision of Left Finger Phalangeal Joint, Open Approach (ICD-10-PCS; principal; 2017-11-17 18:20)
PROC: 02HV33Z Insertion of Infusion Device into Superior Vena Cava, Percutaneous Approach (ICD-10-PCS; 2017-11-19)
PROC: B548ZZA Ultrasonography of Superior Vena Cava, Guidance (ICD-10-PCS; 2017-11-19)
DX: M00.9 Pyogenic arthritis, unspecified (principal); B95.62 Methicillin resistant Staphylococcus aureus infection as the cause of diseases classified elsewhere; F03.90 Unspecified dementia, unspecified severity, without behavioral disturbance, psychotic disturbance, mood disturbance, and anxiety; E11.9 Type 2 diabetes mellitus without complications; Z79.84 Long term (current) use of oral hypoglycemic drugs; K21.9 Gastro-esophageal reflux disease without esophagitis; N40.0 Benign prostatic hyperplasia without lower urinary tract symptoms; R03.0 Elevated blood-pressure reading, without diagnosis of hypertension; E78.00 Pure hypercholesterolemia, unspecified; Z87.891 Personal history of nicotine dependence
CPT/HCPCS: 36569; 71045; 73130; 76937; 80048; 80053; 80202; 82948; 83605; 85025; 85610; 85652; 85730; 86140; 86403; 87015; 87040; 87070; 87102; 87116; 87147; 87186; 87205; 87206; 88305; 88307; 93005; 99285; J0690; J1642; J1650; J1815; J2270; J2405; J2543; J3010; J3370; J7030; J7050